=== PATIENT | female | born 1965 | race Caucasian/White ===

== ENCOUNTER 2016-08-17 14:19 | Emergency (ER) | payer MEDICAID ==
[2016-08-17 14:27] VITALS: BP 174/108; PULSE 78; RESP 16; TEMP 97.5; O2SAT 96
--- NOTE | 2016-08-17 14:52 | EDPHY ---
H & P Stated Complaint: hurt back carrying potted plants Time Seen by Provider: 08/17/16 14:39 HPI/ROS: CHIEF COMPLAINT: Bilateral paraspinous back pain HISTORY OF PRESENT ILLNESS: 51-year-old female arrives via bus complaining of acute lumbar paraspinous back pain after she was lifting heavy potted plants 2 days ago and felt immediate low back pain. Pain is reproducible with range of motion at the waist. Pain unrelieved with ibuprofen and acetaminophen. She has been applying warm compresses only parent The pain does not radiate, she has no radiculopathy. Denies: Incontinence, retention, saddle anesthesia, fever, chills, direct trauma or fall. PRIMARY CARE PROVIDER: none currently, recently lost her [employer] insurance REVIEW OF SYSTEMS: A ten point review of systems was performed and is negative with the exception of the items mentioned in the HPI PAST MEDICAL & SURGICAL HISTORY: History of chronic low back pain SOCIAL HISTORY: nonsmoker no drug use PHYSICAL EXAM (Prior to examination, patient consented to physical exam, hands were washed and my usual and customary physical exam procedures followed) 1) GENERAL: Well-developed, well-nourished, alert and oriented. Appears uncomfortable when she is asked to move and perform range of motion at the waist . 2) HEAD: Normocephalic, atraumatic 3) HEENT: Pupils equal, round, reactive to light bilaterally. Sclera anicteric. 4) NECK: Full range of motion, no meningeal signs. 5) LUNGS: Clear auscultation bilaterally, no wheezes, no rhonchi, no retractions. 6) HEART: Regular rate and rhythm, no murmur, no heave, no gallop. 7) ABDOMEN: No guarding, no rebound, no focal tenderness, negative McBurney's no mass, 8) MUSCULOSKELETAL: Moving all extremities, no focal areas of tenderness, no obvious trauma. No peripheral edema or discoloration. 9) BACK: tender to palpation paraspinous muscle. No CVA tenderness, no midline vertebral tenderness, no fluctuance, no step-off, no obvious trauma, no visual or palpable abnormality. Patella, Achilles reflexes intact to bilateral strength 5/5 10) SKIN: No rash, no petechiae. DIFFERENTIAL DIAGNOSIS: In no particular order, including but not limited to, fracture, sprain/strain, cauda equina, spinal infectious etiology. MEDICAL DECISION MAKING Lower index of suspicion for cauda equina, epidural abscess, epidural hematoma, lumbar myositis, diskitis, as the patient is neurologically intact in the lower extremities, has patella and Achilles reflexes intact and equal bilaterally, has no neurologic deficits, no incontinence, no retention, no midline pain, no fluctuance, afebrile, no flulike symptoms. Pain may be secondary to muscular strain, may be secondary to discogenic etiology. At this point I do not identify definitive indication for emergent MRI, however patient may necessitate this on an outpatient basis. Patient given acute back pain precautions. Recommend cold packs. She has had pain unrelieved with ibuprofen and acetaminophen. Will prescribe tramadol. Patient verbalizes understanding of discharge instructions. I believe them be competent decision-makers. All questions and concerns have been addressed by me. Ample opportunity for questions have been provided . The patient understands that this diagnosis is provisional and can never be 100% accurate. Usual and customary warnings were given concerning the clinical impression and all the patient's questions were answered. The patient was instructed to return to the emergency department should her symptoms worsen or return, or develop any new symptoms, otherwise to followup as directed in discharge instructions. - Personal History LMP (Females 10-55): Post Menopausal Current Tetanus/Diphtheria Vaccine: Yes Current Tetanus Diphtheria and Acellular Pertussis (TDAP): Yes Tetanus Vaccine Date: < 5 years - Medical/Surgical History Hx Asthma: No Hx Chronic Respiratory Disease: No Hx Diabetes: No Hx Cardiac Disease: No Hx Renal Disease: No Hx Cirrhosis: No Hx Alcoholism: No Hx HIV/AIDS: No Hx Splenectomy or Spleen Trauma: No Other PMH: HTN - Social History Smoking Status: Former smoker Constitutional: Initial Vital Signs Temperature (C) 36.4 C 08/17/16 14:25 Heart Rate 78 08/17/16 14:25 Respiratory Rate 16 08/17/16 14:25 Blood Pressure 174/108 H 08/17/16 14:25 O2 Sat (%) 96 08/17/16 14:25 O2 Delivery Mode Room Air Allergies/Adverse Reactions: lisinopril Allergy (Verified 05/07/15 21:06) Other-Enter Comments Home Medications: Medication Instructions Recorded HCTZ (RX) 12/09/13 Sertraline HCl [Zoloft 25mg (*)] 05/07/15 amLODIPine BESYLATE [Norvasc 2.5 05/07/15 mg (*)] traMADol [Ultram 50 mg (*)] 50 mg PO Q6 #10 tab 08/17/16 Departure - Departure Disposition: Home, Routine, Self-Care Clinical Impression: Acute low back pain Qualifiers: Back pain laterality: bilateral Sciatica presence: without sciatica Qualified Code(s): M54.5 - Low back pain Condition: Good Instructions: Acute Low Back Pain (ED) Additional Instructions: Seek medical attention if you develop new or worsening pain, if you develop bladder or bowel dysfunction, numbness around your perineum, foot drop, or any other symptoms that concern you. Referrals: [facility],. [Clinic] - As per Instructions Prescriptions: traMADol [Ultram 50 mg (*)] 50 mg PO Q6 #10 tab
== END 2016-08-17 15:02 | disposition home or self-care (01) ==
DX: S39.92XA Unspecified injury of lower back, initial encounter (principal); I10 Essential (primary) hypertension; Z87.891 Personal history of nicotine dependence; X58.XXXA Exposure to other specified factors, initial encounter

== ENCOUNTER 2017-09-10 18:44 | Emergency (ER) | payer MEDICAID, OTHER ==
[2017-09-10] MEDS ORDERED: LIDOCAINE 4%/MENTHOL 1% PATCH TD ONE (20:31)
--- NOTE | 2017-09-11 16:47 | EDPHY ---
H & P Time Seen by Provider: 09/10/17 20:30 HPI/ROS: CHIEF COMPLAINT: Back pain HISTORY OF PRESENT ILLNESS: 52-year-old female presents to the emergency department by private vehicle with her daughter complaining of left low back pain. The patient moved into a new apartment and was doing a lot heavy lifting about a week and half ago and since that time has had ongoing pain in her left low back. She does have some radiating pain down her left leg. She feels that the pain is getting worse. She does take ibuprofen occasionally. This does help with her pain however it comes right back. She is now having pain especially with sitting which is difficult with her job. She has pain with certain positions and movement. She denies bowel or bladder incontinence. Denies footdrop. Denies chest pain or difficulty breathing. Denies symptoms in the right leg. REVIEW OF SYSTEMS: Constitutional: No fever, no chills. Eyes: No double or blurry vision. ENT: No sore throat. Respiratory: No cough, no shortness of breath. Cardiac: No chest pain. Gastrointestinal: No abdominal pain, vomiting or diarrhea. Genitourinary: No dysuria. Musculoskeletal: Back pain as above. No neck pain. Skin: No rashes. Neurological: No headache. Past Medical/Surgical History: Hypertension Social History: The patient is . She drives a bus for [employer] Smoking Status: Former smoker Physical Exam: General Appearance: Alert, no distress. Eyes: Pupils equal and round. Extraocular motions are all intact. ENT: Mouth: Mucous membranes moist. Respiratory: No wheezing, rhonchi, or rales, lungs are clear to auscultation. Cardiovascular: Regular rate and rhythm. Gastrointestinal: Abdomen is soft and nontender, no masses, no rebound or guarding, bowel sounds normal. Neurological: Alert and oriented x 3, cranial nerves II through XII grossly intact Skin: Warm and dry, no rashes. Musculoskeletal: Nontender to palpate along the cervical, thoracic or lumbar spine. Neck is supple. Normal heel-toe walking. She does have reproducible pain with bending over to try to touch her toes as well as laterally bending to the left and the right. Straight leg raise is negative bilaterally. Reflexes are 2+ and equal for lower extremities bilaterally. Extremities: Full range of motion and no peripheral edema. Psychiatric: Patient is oriented X 3, there is no agitation. Allergies/Adverse Reactions: lisinopril Allergy (Verified 05/07/15 21:06) Other-Enter Comments Home Medications: Medication Instructions Recorded HCTZ (RX) 12/09/13 Sertraline HCl [Zoloft 25mg (*)] 05/07/15 amLODIPine BESYLATE [Norvasc 2.5 05/07/15 mg (*)] traMADol [Ultram 50 mg (*)] 50 mg PO Q6 #10 tab 08/17/16 Medical Decision Making ED Course/Re-evaluation: This patient was seen during downtime. 52-year-old female presents to the emergency department with low back pain. Clinically I do not think MRI in the emergency department is indicated. The patient has a normal neurologic examination. I encouraged her to continue ibuprofen as instructed. She will be treated with Medrol Dosepak, Flexeril for muscular spasm, and lidocaine patches. She was given referral to neurosurgeon. She was given precautions including footdrop, bowel or bladder incontinence, weakness or numbness or tingling in her legs and she should return to the emergency department immediately if this develops. Differential Diagnosis: Back pain including but not limited to muscular pain, herniated disc, spine fracture, intra-abdominal causes and urinary tract infection. Departure - Departure Disposition: Home, Routine, Self-Care Clinical Impression: Low back strain Qualifiers: Encounter type: initial encounter Qualified Code(s): S39.012A - Strain of muscle, fascia and tendon of lower back, initial encounter Condition: Good Instructions: Low Back Strain (ED), Lower Back Exercises (ED) Additional Instructions: Ibuprofen 600 mg 3 times daily with food as directed. Medrol Dosepak as directed for 1 week. Flexeril as needed for muscular spasm. Lidocaine patches as directed. Follow up with neurosurgeon as discussed. Return to the emergency department sooner if you develop footdrop, bowel or bladder incontinence, feelings of weakness or change in sensation in her lower extremities or any other concerns. Referrals: [facility] [Other] - As per Instructions Koko Jackson MD [Medical Doctor] - 5-7 days, call for appt. (Neurosurgeon on- call)
== END 2017-09-10 20:30 | disposition home or self-care (01) ==
DX: S39.012A Strain of muscle, fascia and tendon of lower back, initial encounter (principal); I10 Essential (primary) hypertension; Z87.891 Personal history of nicotine dependence; X50.0XXA Overexertion from strenuous movement or load, initial encounter